=== PATIENT | female | born 1970 | race Caucasian/White ===

== ENCOUNTER 2016-09-11 13:15 | Emergency (ER) | payer SELFPAY ==
[2014-09-06 11:30] VITALS: BMI 49.9
[~2016-09-11 13:15] MED LIST: ADIPEX-P37.5 M1 PO; ADIPEX-P37.5 MG PO; ATARAX 25 MG TA25 MG PO; BUTALB-APAP-CA1 EACH PO; CELEXA20 MG PO; CELEXA40 MG PO; CIPRO500 MG PO; COLACE100 MG PO; COUMADIN5 MG PO; COUMADIN7.5 MG PO; FLAGYL500 MG PO; FLUTICASONE PRO16 GM NS; GAS-X180 MG PO; HYDROCODON-ACE1 EAC7 PO; LYSTEDA; MEGACE40 MG PO; MIRALAX17 GM PO; PERCOCET 10/3251 TA1 PO; PROVENTIL HFA6.7 GM INH; VISTARIL25 MG PO; VITAMIN D250000 UNIT PO; XANAX0.25 MG PO; XARELTO20 MG PO; ZOFRAN4 MG PO
[2016-09-11 14:59] LABS: BASOPHILS 0.3 % (0.0-2.0); EOSINOPHILS 1.9 % (0-7); HEMATOCRIT 43.4 % (36.0-48.0); HEMOGLOBIN 14.9 g/dL (12-16); IMMATURE GRANULOCYTES 0.9 % (0-5); LYMPHOCYTES 21.7 % (15-50); MCH 29.9 pg (26.0-34.0); MCHC 34.3 g/dL (31.0-37.0); MCV 87.1 fL (80.0-100.0); MEAN PLATELET VOLUME 9.3 fL (7.4-10.4); MONOCYTES 7.7 % (2-11); NEUTROPHILS 67.5 % (40-80); RBC 4.98 10x6/uL (4.00-5.40); RDW 12.2 % (11.5-14.5); WBC 6.7 10x3/uL (4.8-10.8)
[2016-09-11 15:02] LABS: HCG URINE NEGATIVE (NEGATIVE); PLATELET COUNT 212 10x3/uL (130-400)
== END 2016-09-11 17:49 | disposition home or self-care (01) ==
LOC: D.ER 13:15
PROVIDERS: Family Medicine
DX: S29.012A Strain of muscle and tendon of back wall of thorax, initial encounter (principal); V49.9XXA Car occupant (driver) (passenger) injured in unspecified traffic accident, initial encounter; Y93.89 Activity, other specified; Y92.410 Unspecified street and highway as the place of occurrence of the external cause